=== PATIENT | female | born 1965 | race Caucasian/White ===

== ENCOUNTER 2018-03-07 04:44 | Emergency (ER) | payer MEDICARE, OTHER, MEDICAID ==
[2018-03-07] MEDS: OXYCODONE/ACETAMINOPHEN (5/325) TAB PO (17:52)
== END 2018-03-07 18:39 | disposition home or self-care (01) ==
LOC: E/R 04:44
DX: Z04.3 Encounter for examination and observation following other accident (principal); E11.9 Type 2 diabetes mellitus without complications; J45.909 Unspecified asthma, uncomplicated; F17.210 Nicotine dependence, cigarettes, uncomplicated; Z79.4 Long term (current) use of insulin
CPT/HCPCS: 99283

== ENCOUNTER 2018-04-06 11:46 | Emergency (ER) | payer MEDICARE, OTHER ==
[2018-04-06] MEDS: LIDOCAINE 1% (MDV) 10 ML INJ INJ (12:44)
[2018-04-06 14:42] LABS: WHITE BLOOD COUNT 5.9 10^3/ul (4.8-10.8)
[2018-04-06 14:42] LABS: ABNORMAL IP MESSAGE 1; HEMATOCRIT 19.4 % (37.0-47.0); MEAN CORPUSCULAR HGB CONC 30.4 g/dl (32.0-37.0); MEAN CORPUSCULAR VOLUME 82.2 fl (82.0-101.0); MEAN PLATELET VOLUME 9.2 fl (7.4-10.4); PLATELET COUNT 209 10^3/UL (140-415); RED BLOOD COUNT 2.36 10^6/ul (4.20-5.40); RED CELL DISTRIBUTION WIDTH 17.2 % (11.5-14.5)
[2018-04-06] MEDS: CEFEPIME 2GM/50 ML (PMX) 50 ML IVPB (14:43)
[2018-04-06 14:51] LABS: ADD MAN DIFF? YES; HEMOGLOBIN 5.9 g/dl (12.0-16.0); POSITIVE DIFF @See below
[2018-04-06] MEDS: VANCOMYCIN 1 GM (PMX) 250 ML IVPB (15:00)
[2018-04-06 15:03] LABS: ALANINE AMINOTRANSFERASE 15 IU/L (13-69); ALBUMIN 2.9 g/dl (3.3-4.9); ALKALINE PHOSPHATASE 104 IU/L (42-121); ANION GAP 12 (8-16); ASPARTATE AMINO TRANSFERASE 9 IU/L (15-46); BILIRUBIN,INDIRECT 0.2 mg/dl (0-1.1); BILIRUBIN,TOTAL 0.2 mg/dl (0.2-1.3); BLOOD UREA NITROGEN 34 mg/dl (7-20); CALCIUM 8.4 mg/dl (8.4-10.2); CARBON DIOXIDE 28 mmol/L (21-31); CHLORIDE 102 mmol/L (97-110); CREATININE 1.84 mg/dl (0.44-1.00); GLUCOSE 87 mg/dl (70-220); INR 1.14; POTASSIUM 4.9 mmol/L (3.5-5.1); PROTIME 14.8 Sec (11.9-14.9); PT RATIO 1.2; SODIUM 137 mmol/L (135-144)
[2018-04-06 15:04] LABS: PARTIAL THROMBOPLASTIN TIME 40.6 Sec (25.0-35.0)
[2018-04-06 15:47] LABS: SYN FLD CLARITY CLOUDY; SYN FLD COLOR YELLOW
[2018-04-06] MEDS: SOD CHLORIDE 0.9% 250 ML IV (15:47)
[2018-04-06 15:48] LABS: SYN FLD WBC 115434 /cmm (0-150)
[2018-04-06 15:49] LABS: SYN FLD MN % 4.3 &; SYN FLD PMN % 95.7 % (0.0-25.0)
[2018-04-06 15:53] LABS: SYN FLD CRYSTALS NO CRYSTALS SEEN (None seen)
[2018-04-06 16:08] LABS: ANISOCYTOSIS 1+ (0-0); LYMPHOCYTES #M 1.5 10^3/ul (0.8-2.9); LYMPHOCYTES % (M) 27 % (15-51); MICROCYTOSIS 1+ (0-0); MONOCYTE #M 0.5 10^3/ul (0.3-0.9); MONOCYTES % (M) 9 % (0-11); PLATELET ESTIMATE NORMAL; POLYCHROMASIA 1+ (0-0); SEGMENTED NEUTROPHILS (M) % 64 % (39-77); SMUDGE%M 1 % (0-0)
[2018-04-06 16:21] LABS: ERYTHROCYTE SEDIMENTATION RATE 150 mm/Hr (0-30)
[2018-04-06] MEDS: morphine 4 MG/ML VIAL IV (20:56)
[2018-04-06] MEDS: ONDANSETRON 4 MG INJ IV (20:56)
[2018-04-06 22:11] LABS: IMMEDIATE SPIN CROSSMATCH 1 2
[2018-04-07] MEDS: ONDANSETRON 4 MG INJ IV (09:07)
[2018-04-07] MEDS: morphine 4 MG/ML VIAL IV ×2 (09:07→13:40)
[2018-04-07 09:36] LABS: ADD MAN DIFF? NO
[2018-04-07 09:39] LABS: BASOPHILS % 0.1 % (0.0-2.0); EOSINOPHILS # 0.1 10^3/ul (0.0-0.5); EOSINOPHILS % 1.2 % (0.0-7.0); HEMATOCRIT 26.3 % (37.0-47.0); HEMOGLOBIN 8.3 g/dl (12.0-16.0); LYMPHOCYTES # 1.1 10^3/ul (0.8-2.9); LYMPHOCYTES % 16.8 % (15.0-51.0); MEAN CORPUSCULAR HEMOGLOBIN 26.2 pg (29.0-33.0); MEAN CORPUSCULAR HGB CONC 31.6 g/dl (32.0-37.0); MEAN PLATELET VOLUME 9.3 fl (7.4-10.4); MONOCYTE # 0.9 10^3/ul (0.3-0.9); MONOCYTES % 14.1 % (0.0-11.0); NEUTROPHIL # 4.5 10^3/ul (1.6-7.5); NEUTROPHILS % 67.2 % (39.0-77.0); PLATELET COUNT 229 10^3/UL (140-415); RED BLOOD COUNT 3.17 10^6/ul (4.20-5.40); RED CELL DISTRIBUTION WIDTH 17.2 % (11.5-14.5)
[2018-04-07 09:39] LABS: WHITE BLOOD COUNT 6.7 10^3/ul (4.8-10.8)
== END 2018-04-07 14:06 | disposition short-term general hospital (02) ==
LOC: E/R 11:46
DX: T84.53XA Infection and inflammatory reaction due to internal right knee prosthesis, initial encounter (principal); J45.909 Unspecified asthma, uncomplicated; E11.9 Type 2 diabetes mellitus without complications; M25.461 Effusion, right knee; R06.02 Shortness of breath; Y79.2 Prosthetic and other implants, materials and accessory orthopedic devices associated with adverse incidents; Z87.891 Personal history of nicotine dependence; Z79.4 Long term (current) use of insulin; Z96.651 Presence of right artificial knee joint
CPT/HCPCS: 20610; 36415; 36430; 73562; 80053; 82962; 85025; 85610; 85651; 85730; 86644; 86850; 86870; 86900; 86901; 86902; 86920; 87040; 87070; 89060; 96374; 96375; 99285-25